=== PATIENT | male | born 1960 | race American Indian/Alaskan Native ===

== ENCOUNTER 2018-12-09 11:32 | Inpatient (IN) | payer OTHER ==
[~2018-12-09] VITALS: Ht 170.2 cm; Wt 93.3 kg
--- OUTSIDE RECORDS SUMMARY | ~2018-12-09 | XMS | Clinical Summary ---
Demographics + + + | Address | [address] | | | [place] [address] | + + + | Home Phone | | + + + | Preferred Language | Unknown | + + + | Marital Status | | + + + | Caodaism Affiliation | Unknown | + + + | Race | Unknown | + + + | Ethnic Group | Unknown | + + + Author + + + | Author | [facility] | | | and [place] | + + + | Organization | [facility] | | | and [place] | + + + | Address | Unknown | + + + | Phone | Unavailable | + + + Support + + + + + | Name | Relationship | Address | Phone | + + + + + | Preston Ra | ECON | [address] | | | [place] | | [place], | | | | | [place] [address] | | + + + + + Care Team Providers + +------+ + | Care Miller First Name | Role | Phone | + +------+ + | Agusto Sanders MD | PP | Unavailable | + +------+ + Allergies + + + + + + | Active Allergy | Reactions | Severity | Noted | Comments | | | | | Date | | + + + + + + | Clonazepam | Rash | Low | 12/20/19 | | | | | | 14 | | + + + + + + | Latex | Rash | Low | 10/01/20 | | | | | | 18 | | + + + + + + Current Medications + + +-------+---------+------+------+-------+ | Prescription | Sig. | Disp. | Refills | Star | End | Statu | | | | | | t | Date | s | | | | | | Date | | | + + +-------+---------+------+------+-------+ | EPINEPHrine | Inject 0.3 mg into | | | | | Activ | | (EPIPEN) 0.3 mg/0.3 | the muscle as | | | | | e | | mL GLNENY | needed. | | | | | | + + +-------+---------+------+------+-------+ | pramipexole | Take 1 mg by mouth. | | | | | Activ | | (MIRAPEX) 1 MG | Take 1 to 2 tablets | | | | | e | | tablet | by mouth at bedtime | | | | | | + + +-------+---------+------+------+-------+ | albuterol | Inhale 2 puffs into | | | | | Activ | | (VENTOLIN HFA) 90 | the lungs every 6 | | | | | e | | mcg/puff inhaler | hours as needed. | | | | | | + + +-------+---------+------+------+-------+ | loratadine | Take 10 mg by mouth | | | | | Activ | | (CLARITIN) 10 mg | Daily as needed for | | | | | e | | tablet | Allergies. | | | | | | + + +-------+---------+------+------+-------+ | | Inhale 2 puffs into | | | | | Activ | | mometasone-formotero | the lungs as needed. | | | | | e | | l (DULERA) 200-5 | | | | | | | | mcg/puff inhaler | | | | | | | + + +-------+---------+------+------+-------+ | Misc. Throat | Take by mouth. 1 | | | | | Activ | | Products (OASIS | capful around in | | | | | e | | MOISTURIZING | mouth 30 seconds and | | | | | | | MOUTHWASH) LIQD | spit twice a day | | | | | | | | after breakfast & | | | | | | | | before bed | | | | | | + + +-------+---------+------+------+-------+ Active Problems + + + | Problem | Noted Date | + + + | Personal history of colon cancer | 06/01/2018 | + + + | Colon cancer screening | 06/01/2018 | + + + | Periodic limb movement disorder (PLMD) | | + + + | Restless legs | | + + + | HBP (high blood pressure) | | + + + + + | Overview: Borderline | + + + +---+ | Organic insomnia | | + +---+ | CLIFFORD (obstructive sleep apnea) | | + +---+ | Mild persistent asthma | | + +---+ Immunizations + + + + | Name | Dates Previously Given | Next Due | + + + + | TDAP, (ADOL/ADULT) | 04/23/2017 | | + + + + Family History Patient is adopted + + +------+ + | Medical History | Relation | Name | Comments | + + +------+ + | Alcohol abuse | Father | | | + + +------+ + + +------+--------+ + | Relation | Name | Status | Comments | + +------+--------+ + | Father | | | | + +------+--------+ + Social History + +-------+ +--------+------+ | Tobacco Use | Types | Packs/Day | Years | Date | | | | | Used | | + +-------+ +--------+------+ | Never Smoker | | | | | + +-------+ +--------+------+ + +---+---+---+ | Smokeless Tobacco: | | | | | Never Used | | | | + +---+---+---+ + + +---------+ + | Alcohol Use | Drinks/We | oz/Week | Comments | | | ek | | | + + +---------+ + | No | | | | + + +---------+ + + + + | Sex Assigned at | Date Recorded | | | | + + + | Not on file | | + + + Last Filed Vital Signs + + + + | Vital Sign | Reading | Time Taken | + + + + | Blood Pressure | 122/84 | 06/21/2018799 PDT | + + + + | Pulse | 77 | 06/21/2018799 PDT | + + + + | Temperature | 36.1 C (97 F) | 06/21/2018726 PDT | + + + + | Respiratory Rate | 14 | 06/21/2018726 PDT | + + + + | Oxygen Saturation | 97% | 06/21/2018799 PDT | + + + + | Inhaled Oxygen | - | - | | Concentration | | | + + + + | Weight | 89.7 kg (197 lb 12 | 06/21/2018642 PDT | | | oz) | | + + + + | Height | 170.2 cm (5' 7") | 06/21/2018642 PDT | + + + + | Body Mass Index | 30.97 | 06/21/2018642 PDT | + + + + Plan of Treatment + + + + + | Health Maintenance | Due Date | Last Done | Comments | + + + + + | Hepatitis C | | | | | Screening | 9 | | | + + + + + | Vaccine: | | | | | Pneumococcal 19-64 | 8 | | | | (PPSV23 only) Medium | | | | | Risk (1 of 1 - | | | | | PPSV23) | | | | + + + + + | Vaccine: Zoster (1 | | | | | of 2) | 9 | | | + + + + + | Vaccine: Influenza | | | | | (#1) | 8 | | | + + + + + | Vaccine: | | 04/23/2017, 03/30/2012 | | | Dtap/Tdap/Td (3 - | 7 | | | | Td) | | | | + + + + + | Colorectal Cancer | | 06/21/2018 | | | Screening | 8 | | | | (Colonoscopy) | | | | + + + + + Results Not on filefrom Last 3 Months Insurance + +--------+ +------+ +---------+ | Payer | Benefi | Subscriber | Type | Phone | Address | | | t Plan | ID | | | | | | / | | | | | | | Group | | | | | + +--------+ +------+ +---------+ | [employer] [place] [employer] | [place] | [id number] | HMO | [phone] | | [place]ALTH | [place] | | | [phone] | | | | GROUP | | | | | | | HEALTH | | | | | | | CORE | | | | | | | HMO | | | | | + +--------+ +------+ +---------+ + +--------+ +--------+ + + | Guarantor Name | Accoun | Relation to | Date | Phone | Billing Address | | | t Type | Patient | of | | | | | | | | | | + +--------+ +--------+ + + | RA AGUSTIN | Person | Self [birth year] | Work: | [address] | | | al/Fam | | 1960 | +- | [place] | | | rajani | | | [phone]: | [id number] | | | | | | | | | | | | | +- | | | | | | | [phone] | | + +--------+ +--------+ + + | [id number] | Worker | Self | [birth year] | Work: | [address] | | 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 | | 1960 | +- | [place] | | | | | | [address]: | [address] | | | | | | | | | | | | | +- | | | | | | | [phone] | | + +--------+ +--------+ + + | [id number] | Worker | Self | [birth year] | Work: | [address] | | 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
--- OUTSIDE RECORDS SUMMARY | ~2018-12-09 | XMS | Clinical Summary ---
Demographics + + + | Address | [address] | | | [place] [address] | + + + | Home Phone | | + + + | Preferred Language | Unknown | + + + | Marital Status | Single | + + + | Orthodoxy Affiliation | Unknown | + + + | Race | Unknown | + + + | Ethnic Group | Other Race | + + + Author + + + | Author | [facility] | + + + | Organization | [facility] | + + + | Address | Unknown | + + + | Phone | Unavailable | + + + Care Team Providers + +------+ + | Care Dynamometer Mechanic Name | Role | Phone | + +------+ + PP | Unavailable | + +------+ + Source Comments [facility] live on [facility] and [facility] Allergies Not on File Current Medications Not on file Active Problems Not on file Social History + +-------+ +--------+------+ | Tobacco Use | Types | Packs/Day | Years | Date | | | | | Used | | + +-------+ +--------+------+ | Never Assessed | | | | | + +-------+ +--------+------+ + + + | Sex Assigned at | Date Recorded | | | | + + + | Not on file | | + + + Plan of Treatment + + + + + | Health Maintenance | Due Date | Last Done | Comments | + + + + + | Influenza (Flu) | | | | | vaccination (#1) | 8 | | | + + + + + Results Not on filefrom Last 3 Months"
[2018-12-09] MEDS ORDERED: NORCO 5-325 TA1 EACH PO (14:34)
[2018-12-09] MEDS ORDERED: HYDROCHLOROTHIA25 MG PO (15:06)
[2018-12-09] MEDS ORDERED: MIRAPEX1.5 MG PO (15:06)
[2018-12-09] MEDS ORDERED: FLOMAX0.4 MG PO (15:07)
[2018-12-09] MEDS ORDERED: AUGMENTIN 875-1 EACH PO (15:08)
[2018-12-09] MEDS ORDERED: ALLERGY RELIEF180 MG PO (15:08)
[2018-12-09] MEDS ORDERED: DOXYCYCLINE HY100 MG PO (15:09)
[2018-12-09] MEDS ORDERED: TAMIFLU75 MG PO (15:10)
--- NOTE | 2018-12-09 16:55 | NUR ---
58 year old MALE PATIENT ADMITTED TO CCU FOR ED UNDER DR. WONG WITH DX OF SEPSIS R/T PNEUMONIA. PATIENT HAS BEEN ILL FOR APPROX 5 DAYS. UPON ADMIT TO CCU PATIENT IS ALERT, ORIENTED AND COOPERATIVE. C/O SHORTNESS OF BREATH. OCC COUGH. HX ASTHMA. ADMISSION PROCESS STARTED. ALAS CATH PATENT.
--- NOTE | 2018-12-09 18:00 | NUR ---
TOOK SOUP AND JELLO FOR DINNER. LESS PAIN AT LEFT ANTERIOR CHEST WALL SINCE OXYCODONE GIVEN IN ER. RESTFUL. HOB ELEVATED.
--- NOTE | 2018-12-09 18:26 | EKG ---
[facility] [address] [facility] [place] [address] Signed Sinus tachycardia Right bundle branch block Inferior infarct , age undetermined Abnormal ECG No previous ECGs available Confirmed by ALEXANDRA WONG MD ([id number]) on 12/09/2018 6:26:24 PM Electronically Signed By: ALEXANDRA WONG MD 12/09/18 1826 PATIENT NAME: ANSLEY AGUSTIN Electrocardiogram DATE OF : 56 PHYSICIAN: ALEXANDRA WONG MD REPORT #: [id number] REPORT IS CONFIDENTIAL AND NOT TO BE RELEASED WITHOUT AUTHORIZATION
--- NOTE | 2018-12-09 19:00 | NUR ---
REPORT TO NEXT SHIFT. REMAINS IN ROOM.
--- NOTE | 2018-12-09 19:27 | NUR ---
REPORT TO NEXT SHIFT.
--- NOTE | 2018-12-09 19:58 | NUR ---
PATIENT RESTING IN BED TALKING WITH . ALERT AND ORIENTED, HR AND BP WNL. R ELEVATED BETWEEN 22 AND 26, SPO2 92% ON ROOM AIR. REPORTS PAIN IN RIBS ON LEFT SIDE, STATES "IT IS JUST NOW STARTING TO COME BACK AGAIN, IT IS GETTING HARD TO TAKE A DEEP BREATH." WILL ADMINISTER PAIN MEDICATION. DENIES FURTHER NEEDS AT THIS TIME. LUNGS ARE CLEAR THROUGHOUT, DIM IN BASES. ALAS PRESENT, QS DARK YELLOW URINE NOTED. IVF INFUSING PER ORDER, IV INTACT. CALL LIGHT WITHIN REACH, AT BEDSIDE.
--- NOTE | 2018-12-09 20:23 | NUR ---
PATIENT REPORTS 5/10 PAIN IN LEFT LOWER RIBS. 5 MG PRN PO OXYCODONE GIVEN. ALSO REPORTS FEELING COLD AND REPORTS CHILLS. TEMPERATURE OF 100.2 ORAL NOTED, PRN TYLENOL GIVEN. DENIES FURTHER NEEDS AT THIS TIME. CALL LIGHT WITHIN REACH, FAMILY AT BEDSIDE.
--- NOTE | 2018-12-09 21:29 | NUR ---
UPDATED DR. WONG REGARDING PATIENT'S CONTINUED ORAL FEVER OF 103 AND CONTINUED PAIN IN LEFT RIBS. NO NEW ORDER REGARDING FEVER, TO CONTINUE GIVING PRN TYLENOL, RECEIVED NEW ORDER FOR PRN IV MORPHINE.
--- NOTE | 2018-12-09 21:43 | NUR ---
PATIENT REPORTS 5/10 PAIN IN LEFT RIB AREA, 4 MG PRN IV MORPHINE GIVEN. DENIES FURTHER NEEDS AT THIS TIME. CALL LIGHT WITHIN REACH.
--- NOTE | 2018-12-09 23:30 | NUR ---
PATIENT RESTFUL WITH EYES CLOSED, BREATHING IS EVEN AND UNLABORED, RESPIRATORY RATE BETWEEN 25 AND 30, SPO2 94% ON RA, FLACC SCORE OF 0. CALL LIGHT WITHIN REACH.
--- NOTE | 2018-12-10 00:26 | NUR ---
PATIENT REMAINS RESTFUL, DENIES FEELING SOB AND STATES "MY BREATHING FEELS A LOT BETTER." PATIENT CONTINUES TO HAVE ORAL TEMPERATURE OF 100.8, PRN TYLENOL GIVEN, PATIENT ALSO REPORTS 4/10 PAIN IN LEFT RIB AREA. PATIENT STATES THAT HE WOULD LIKE THE PRN OXYCODONE, 10 MG INSTEAD OF IV MORPHINE, PRN OXYCODONE ADMINISTERED. DENIES FURTHER NEEDS AT THIS TIME. NO ACUTE CHANGES IN ASSESSMENT. CONTINUES TO HAVE GREATER THAN QS URINE. CALL LIGHT WITHIN REACH, AT BEDSIDE.
--- NOTE | 2018-12-10 03:02 | NUR ---
PATIENT RESTFUL WITH EYES CLOSED, BREATHING IS EVEN AND UNLABORED, RR 18, SPO2 92% ON ROOM AIR. FLACC SCORE OF 0. CALL LIGHT WITHIN REACH.
--- NOTE | 2018-12-10 04:25 | NUR ---
PATIENT REPORTS BLOOD STREAKED SPUTUM AFTER COUGHING, ALSO REPORTS MILD SHORTNESS OF BREATH, RR 24, SPO2 93% ON ROOM AIR. EXPIRATORY WHEEZES NOTED WITH COARSE BERATH SOUNDS LEFT MID LOBE OF LUNG. PATIENT STATES "OVERALL MY BREATHING ACTUALLY FEELS A LOT BETTER. THE PAIN IS MANEGABLE NOW." CALLED RT FOR DUONEB AND ASSESSMENT.
--- NOTE | 2018-12-10 05:05 | NUR ---
PATIENT NOW RESTFUL SITTING UP IN BED WATCHING TV, REMAINS ON ROOM AIR, SPO2 93%, RR BETWEEN 28 AND 32 BUT STATES "MY BREATHING FEELS LOADS BETTER, I AM JUST GETTING CHILLS AGAIN." TEMPERATURE OF 100.9 NOTED, PRN TYLENOL GIVEN. LUNGS ARE CLEAR THROUGHOUT, DIM IN LLL. DENIES FURTHER NEEDS AT THIS TIME. CALL LIGHT WITHIN REACH.
--- NOTE | 2018-12-10 05:14 | NUR ---
REPORTS 4/10 PAIN IN LEFT RIB AREA, STATES "THE PAIN IS MUCH MORE MAGEABLE AND I CAN TAKE DEEPER BREATHES, BUT THE PAIN IS STARTING TO COME BACK." 5 MG PO PRN OXYCODONE GIVEN. DENIES FURTHER NEEDS. CALL LIGHT WITHIN REACH.
--- NOTE | 2018-12-10 08:00 | NUR ---
PT RESTING IN BED WATCHING TV WITH HIS AT THE BEDSIDE. HE DENIES ANY NEEDS BUT IS PLEASANT, CALM AND COOPERATIVE. CALL LIGHT WITHIN REACH. WILL CONTINUE TO MONITOR AND RETURN WITH MEDICATIONS AND ASSESSMENT WITHIN THE HOUR.
--- NOTE | 2018-12-10 08:40 | NUR ---
PT SITTING UP IN BED AND JUST COMPLETED 100% OF HIS BREAKFAST. ASSESSMENT COMPLETED. PT IS A/O X4 WITH C/O 5 OUT OF 10 LEFT RIB PAIN FROM COUGHING- PRN TYLENOL GIVEN. HE DENIES ANY N/V OR SOB/BREATHING ISSUES. HIS LUNGS ARE CLEAR THROUGHOUT ALL LOBES AT THIS TIME. ROOM AIR. HIS ABDOMEN IS SLIGHTLY FIRM AND MODERATELY DISTENDED, MORE THAN HIS USUAL PER PT. ACTIVE BOWEL SOUNDS. LAST BM WAS YESTERDAY. PT STRONG AND STEADY. ALAS IS IN PLACE WITH CLEAR, LIGHT YELLOW URINE- ADEQUATE UOP. RASH AND SOME SCABBING ON BILATERAL SHINS WHICH PT STATES IS FROM HIS PSORIASIS. EDUCATION COMPLETED ON MEDICATIONS AND PLAN OF CARE WITH PT AND HIS . HIS VS AND CONDITION ARE OVERALL STABLE. HE DENIES ANY FURTHER NEEDS AT THIS TIME. CALL LIGHT WITHIN REACH. FALL PRECAUTIONS IN PLACE. WILL CONTINUE TO MONITOR.
--- NOTE | 2018-12-10 09:05 | NUR ---
DR. WONG AT THE BEDSIDE
--- NOTE | 2018-12-10 09:50 | NUR ---
ALAS CATHETER REMOVED AT THIS TIME WITHOUT ANY COMPLICATIONS- PT TOLERATED WELL. CONTINUOUS LR RATE ALSO CHANGED TO 75 ML/HR FROM 150 ML/HR. PT REMAINS VERY PLEASANT, CALM AND COOPERATIVE. HE STATES HIS PAIN HAS IMPROVED SLIGHTLY, AND REFUSING ANY PRN OXYCODONE AT THIS TIME. ONE TIME DOSE OF KCHLOR GIVEN. PT DENIES ANY FURTHER NEEDS AT THIS TIME. REMAINS AT BEDSIDE. CALL LIGHT WITHIN REACH. WILL CONTINUE TO MONITOR.
--- NOTE | 2018-12-10 11:03 | NUR ---
PRN OXY GIVEN PER PT'S REQUEST TO "STAY AHEAD OF BAD PAIN." UNASYN HUNG WITH CONTINUOUS FLUIDS. PT'S AT BEDSIDE AND HIS DAUGHTER HAS JUST ARRIVED TO VISIT WELL. PT STATES HE FEELS NO URGE TO URINATE YET POST ALAS CATH REMOVAL. CALL LIGHT WITHIN REACH. WILL CONTINUE TO MONITOR.
--- NOTE | 2018-12-10 12:40 | NUR ---
PT SITTING UP WITH FAMILY EATING HIS LUNCH AT THIS TIME. ASSESSMENT COMPLETED. PRN TYLENOL GIVEN FOR A TEMP SPIKE OF 101.5 ORALLY. PT STATED HE FELT HOT LIKE HE HAD A FEVER WELL. EDUCATION GIVEN ON INFECTION PROCESS. PT STILL STATES HE DOESN' FEEL THE URGE TO URINATE YET- WILL CONTINUE TO MONITOR AND ASSESS/FOLLOW UP. NO CHANGES IN ASSESSMENT- DIM LUNG SOUNDS IN BILATERAL BASES. PT DENIES ANY NEEDS AND STATES THAT HE'S COMFORTABLE AT HIS PAIN GOAL OF A 2 OUT OF 10. HE STATES THIS PAIN WORSENS WHEN HE COUGHS BUT IT SUBSIDES WITH REST. CALL LIGHT WITHIN REACH. WILL CONTINUE TO MONITOR.
--- NOTE | 2018-12-10 13:30 | NUR ---
PT AMBULATED WITH STAND BY ASSISTANCE UP TO BATHROOM. PT STRONG AND STEADY ON HIS FEET. FULL BATH COMPLETED BY PT INDEPENDENTLY WHILE UP IN BATHROOM. FULL LINEN CHANGE COMPLETED. PT STILL REMAINS UP IN BATHROOM AT THIS TIME TO ATTEMPT URINATION. PT AWARE TO CALL WITH PULL STRING WHEN FINISHED THEN WILL BE SITTING UP IN RECLINER ENCOURAGED.
--- NOTE | 2018-12-10 14:00 | NUR ---
PT CURRENTLY SITTING UP IN RECLINER AFTER FULL BATH IN BATHROOM. DAUGHTER AND REMAIN AT HIS SIDE IN THE ROOM VISITING WITH PT. PT DENIES ANY PAIN BUT STATES HE FEELS "A LITTLE WORN OUT" AFTER SPENDING A FEW MINUTES UP IN THE BATHROOM ON HIS FEET. PT ALSO HAS URINATED 225 CC OF NELDA URINE INTO URINAL- NO LONGER DUE TO VOID. CALL LIGHT WITHIN REACH. FRESH ICE WATER PROVIDED. WILL CONTINUE TO MONITOR.
[2018-12-10] MEDS ORDERED: DULERA 100 MCG/13 GM INH (14:33)
[2018-12-10] MEDS ORDERED: PROAIR HFA8.5 GM INH (14:33)
--- NOTE | 2018-12-10 15:31 | NUR ---
PT REMAINS UP IN CHAIR WATCHING TV WITH FAMILY AT HIS SIDE VISITING. HE DENIES ANY PAIN OR SOB, STATES HE'S COMFORTABLE WITH NO QUESTIONS OR CONCERNS. WORKING ON HIS ACAPELLA AND IS INDEPENDENTLY. CALL LIGHT WITHIN REACH. WILL CONTINUE TO MONITOR.
--- NOTE | 2018-12-10 16:31 | NUR ---
PT HAS AMBULATED FROM RECLINER TO BATHROOM, AND BACK TO RECLINER, TO HAVE A BM. PT BACK IN RECLINER WITH FAMILY AT BEDSIDE. ASSESSMENT COMPLETED. PT DENIES PAIN BUT IS TACHYPNEIC AFTER EXERTION/AMBULATION. REMAINS ROOM AIR WITH ADEQUATE OXYGENATION. PT'S TEMP HAS INCREASED TO 102.2 AND PRN TYLENOL GIVEN. HE DENIES ANY NEEDS AT THIS TIME. LEVAQUIN INITIATED. CALL LIGHT WITHIN REACH. WILL CONTINUE TO MONITOR AND FOLLOW UP WITH INCREASED TEMP.
--- NOTE | 2018-12-10 17:40 | NUR ---
PT WATCHING TV WHILE WORKING ON HIS DINNER. DENIES ANY PAIN AT THIS TIME. DENIES ANY FURTHER NEEDS. CALL LIGHT WITHIN REACH. WILL CONTINUE TO MONITOR.
--- NOTE | 2018-12-10 18:28 | NUR ---
PT STILL SLOWLY WORKING ON HIS DINNER. EDUCATION REPEATED ON URINATING IN THE URINAL SO WE CAN SEND TO LAB. HE STATES HIS UNDERSTANDING OF THIS. AND DAUGHTER REMAIN AT THE BEDSIDE VISITING WITH PT. TEMP RECHECKED AND IT HAS DECREASED TO 99.8. CALL LIGHT WITHIN REACH. WILL CONTINUE TO MONITOR.
--- NOTE | 2018-12-10 18:45 | NUR ---
PRN OXYCODONE GIVEN AFTER PT CALLED THIS RN INTO ROOM AFTER HEARING A "POP" IN HIS LEFT RIB AFTER COUGHING. HE STATES THAT IT IS SORE NOW HE SITS IN HIS BED. HIS CONDITION AND HIS VS REMAIN STABLE AND ASYMPTOMATIC. TOLD PT TO CONTINUE TO MONITOR IT AND LET RN KNOW IF WORSENS. CALL LIGHT WITHIN REACH. WILL CONTINUE TO MONITOR.
--- NOTE | 2018-12-10 19:20 | NUR ---
URINE SPECIMEN SENT TO LAB AT THIS TIME PER ORDERS. PT BACK IN BED AFTER BEING UP TO RESTROOM.
--- NOTE | 2018-12-10 19:48 | NUR ---
PATIENT REPORTS 7/10 PAIN IN LEFT RIB AREA AND STATES "IT IS REALLY BAD WHEN I COUGH." 4 MG PRN IV MORPHINE GIVEN. PATIENT STATES "MY BREATHING FEELS PRETTY GOOD RIGHT NOW, I AM FEELING BETTER OVERALL." DENIES FURTHER NEEDS. ALERT AND ORIENTED X4, RIGHT LUNG CLARK ARE CLEAR, CRACKLES HEARD IN LEFT LOWER LOBE, EXP WHEEZE AT TIMES IN UPPER LEFT LUNG FIELD. HR AND AND BP WNL, PERIPHERAL PULSES WELL FELT. O2 SATURATION 95% ON ROOM AIR, RR IN 20s. IV TO LEFT FOREARM INTACT, IVF INFUSING PER ORDER. CALL LIGHT WITHIN REACH, AT BEDSIDE.
--- NOTE | 2018-12-10 21:30 | NUR ---
PATIENT CONTINUES TO REPORT UNCONTROLLED LEFT SIDED PLEURITIC CHEST PAIN, 8MG IV PRN MORPHINE GIVEN. RR 26, SPO2 95%, BREATHING UNLABORED. DENIES FURTHER NEEDS. CONTINUOUS PULSE OX ON, CALL LIGHT WITHIN REACH.
--- NOTE | 2018-12-10 22:10 | NUR ---
NOTIFIED DR. WONG THAT PATIENT HAS HADI NCREASED NEED FOR PAIN MEDICATION WITH PLEURITIC CHEST PAIN ON LEFT SIDE AFTER PATIENT REPORTS "POPPING SENSATION" AFTER COUGHING. RECEIVED ORDER TO GIVEN PATIENT 5 MG PO OXYCODONE NOW AND IF PATIENT'S PAIN DOES NOT IMPROVE, MAY START ON IV KETORALAC 30 MG Q8H PRN FOR PAIN.
--- NOTE | 2018-12-10 23:15 | NUR ---
PATIENT RESTFUL WITH EYES CLOSED, BREATHING IS EVEN AND UNLABORED, SPO2 89% ON ROOM AIR, PLACED ON 1L O2 VIA NC, SPO2 NOW 94%. FLACC SCORE OF 0. CALL LIGHT WI
--- NOTE | 2018-12-11 00:04 | NUR ---
PATIENT UP TO BATHROOM SBA, ABLE TO HAVE BM AND VOIDED 500 CC NELDA URINE. NOW RESTING IN BED AGAIN, BREATHING MILDLY LABORED, RR 24 TO 26, SPO2 94% ON ROOM AIR WITH AMBULATION. PATIENT STATES "MY BREATHING FEELS REALLY GOOD RIGHT NOW." AT REST, REPORTS PAIN 5/10 PLEURITIC CHEST PAIN ON LEFT SIDE, 30 MG IV PRN KETOROLAC GIVEN. PATIENT DENIES FURTHER NEEDS AT THIS TIME. PLACED ON 1L O2 VIA NC FOR SLEEP, SPO2 DOWN BETWEEN 89 AND 92% WITH SLEEP ON ROOM AIR. CALL LIGHT WITHIN REACH, IVF INFUSING PER ORDER.
--- NOTE | 2018-12-11 02:31 | NUR ---
PATIENT RESTFUL WITH EYES CLOSED, BREATHING IS EVEN AND UNLABORED, RR 20, SPO2 94% ON 1L O2 VIA NC. PATIENT STATES PAIN IS WELL CONTROLLED AND HAS BEEN ABLE TO SLEEP. DENIES NEEDS AT THIS TIME. CALL LIGHT WITHIN REACH.
--- NOTE | 2018-12-11 03:48 | NUR ---
PATIENT RESTFUL WITH EYES CLOSED, BREATHING IS UNLABORED, SPO2 98% ON 1L, TITRATED TO ROOM AIR. DENIES SOB, DENIES NEED FOR PAIN MEDICATION AND STATES "MY PAIN IS WELL CONTROLLED RIGHT NOW." NO ACUTE CHANGES IN ASSESSMENT. DENIES NEEDS AT THIS TIME. CALL LIGHT WITHIN REACH.
--- NOTE | 2018-12-11 06:05 | NUR ---
PT UP TO BATHROOM, VOIDED 400 MLS OF DARK YELLOW URINE AND HAD A SMALL SOFT/LOOSE BM, PT BACK TO BED, C/O 03/29 PAIN RELATED TO LEFT PLEURITIC CHEST PAIN, PT STATES PAIN IS EXACERBATED WITH MOVEMENT AND COUGHING, PT GIVEN PRN PAIN MED PER EMAR. EDUCATION PROVIDED REGARDING PAIN MANAGEMENT. QUESTIONS ANSWERED, ICE CHIPS/ICE WATER PROVIDED, NO FURTHER REQUESTS AT THIS TIME, CALL LIGHT WITHIN REACH.
--- NOTE | 2018-12-11 08:15 | NUR ---
PT ENCOURAGED TO GET UP TO RECLINER FOR BREAKFAST- STRONG AND STEADY ON HIS FEET AND NOW UP IN RECLINER EATING BREAKFAST. PT IS A/O X4. DENIES N/V AND DENIES SOB BUT IS TACHYPNEIC AFTER AMBULATION. ROOM AIR. LUNGS ARE CLEAR EXCEPT CRACKLES HEARD IN THE LEFT LOWER BASE. PT HAS A MOIST COUGH- C/O PAIN OF A 7 OUT OF 10 AT THIS TIME IN THE LEFT RIB CAGE BUT WORSENS WITH HIS COUGH. TORADOL GIVEN. LR RUNNING INTO LEFT ARM PIV WITHOUT ISSUE. SITE WNL. CONTINUOUS TELE- SINUS RHYTHYM. PT IS VERY PLEASANT, CALM AND COOPERATIVE. HIS IS AT THE BEDSIDE. LINENS CHANGED WHIL PT OUT OF BED AND FRESH ICE WATER PROVIDED. PT DENIES ANY NEEDS AT THIS TIME. CALL LIGHT WITHIN REACH. WILL CONTINUE TO MONITOR AND FOLLOW UP ON PAIN.
--- NOTE | 2018-12-11 09:04 | NUR ---
PT REMAINS UP IN HIS RECLINER VISITING WITH HIS AND TWO FAMILY FRIENDS WHO HAVE JUST ARRIVED TO VISIT. CALL LIGHT WITHIN REACH. WILL CONTINUE TO MONITOR.
--- NOTE | 2018-12-11 09:25 | NUR ---
REASSESSMENT OF PAIN COMPLETED- PT STATES HIS PAIN HAS DECREASED AND IS NOW AT A 4 OUT OF 10 AFTER GETTING PRN TORADOL. UP IN RECLINER WATCHING TV WITH HIS , DENIES ANY NEEDS AT THIS TIME. CALL LIGHT WITHIN REACH. WILL CONTINUE TO MONITOR.
--- NOTE | 2018-12-11 10:22 | NUR ---
PT BACK IN BED- USED RESTROOM (HAD BM AND URINATED 450 CC) AND CLEANED UP INDEPENDENTLY AT THE SINK. PT NOW RESTING IN BED WITH FRESH ICE PACK ON HIS LEFT RIBS. HIS REMAINS AT BEDSIDE. CALL LIGHT WITHIN REACH. WILL CONTINUE TO MONITOR.
--- NOTE | 2018-12-11 11:14 | NUR ---
ENTERED ROOM TO FIND PT NAPPING COMFORTABLY. PT AWOKE UPON MY ARRIVAL WELL 2 OTHER FAMILY FRIENDS WHO WERE JUST WALKING IN THE ROOM. UNASYN AND KCHLOR GIVEN. PT STATES HE'S COMFORTABLE AND CONTINUES WITH HIS ICE PACK ON HIS LEFT RIBCAGE. HE DENIES ANY NEEDS AT THIS TIME. CALL LIGHT IS WITHIN REACH. WILL CONTINUE TO MONITOR.
--- NOTE | 2018-12-11 12:01 | NUR ---
ASSESSMENT COMPLETED AGAIN AT THIS TIME. NO CHANGE IN ASSESSMENT. PT'S TEMP HAS IMPROVED AND IS 98.6 AT THIS TIME. PT AND HIS HAD SOME QUESTIONS IN REGARDS TO INFECTION AND ABX THERAPY- EDUCATION COMPLETED. 10 MG OXYCODONE GIVEN FOR LEFT RIB CAGE PAIN OF A 6 OUT OF 10. PT'S COUGH PERSISTS AND IS MOIST WELL WEAK- BUT PT SAYS HE'S ABLE TO COUGH BETTER AND WITH MORE STRENGTH AFTER PAIN MEDICATION. PT DENIES ANY FURTHER NEEDS AT THIS TIME. LUNCH ORDER HAS JUST BEEN PLACED. CALL LIGHT WITHIN REACH. WILL CONTINUE TO MONITOR AND FOLLOW UP ON PAIN CONTROL.
--- NOTE | 2018-12-11 13:00 | NUR ---
PT SITTING UP EATING LUNCH WITHOUT ANY CONCERNS, REQUESTS OR NEEDS TO BE MET. CALL LIGHT WITHIN REACH. WILL CONTINUE TO MONITOR.
--- NOTE | 2018-12-11 14:05 | NUR ---
PT ASLEEP IN BED AT THIS TIME AND APPEARS COMFORTABLE WITH NO SIGNS OF DISCOMFORT. HIS VS REMAIN STABLE. AT BEDSIDE WHO DENIES ANY NEEDS AT THIS TIME. CALL LIGHT WITHIN REACH. WILL CONTINUE TO MONITOR.
--- NOTE | 2018-12-11 15:08 | NUR ---
PT VISITING WITH FAMILY MEMBERS VISITING HIM AT THE BEDSIDE. HE STATES HE'S COMFORTABLE WITH NO REQUESTS AT THIS TIME. CALL LIGHT WITHIN REACH. WILL CONTINUE TO MONITOR.
--- NOTE | 2018-12-11 16:00 | NUR ---
ASSESSMENT COMPLETED AT THIS TIME. PT CURRENTLY SITTING WITH NUMEROUS FAMILY MEMBERS VISITING HIM AT THE BEDSIDE. PT REMAINS VERY PLEASANT, CALM AND COOPERATIVE. FEVER OF 101.5. HE STATES HIS PAIN IS AN 8 OUT OF 10- PRN OXYCODONE GIVEN. DENIES ANY OTHER SYMPTOMS. NO CHANGES IN HEAD TO TOE ASSESSMENT. HE REMAINS ROOM AIR. DINNER ORDERED FOR HIM. DENIES ANY FURTHER NEEDS. CALL LIGHT WITHIN REACH. WILL CONTINUE TO MONITOR AND FOLLOW UP.
--- NOTE | 2018-12-11 16:08 | NUR ---
NOTIFIED DR. WONG AT THIS TIME OF PT'S TEMP OF 101.5 (38.5)- VERBAL ORDER GIVEN FOR TWO SETS OF BLOOD CULTURES TO BE DRAWN.
--- NOTE | 2018-12-11 17:08 | NUR ---
LAB HAS BEEN UP TO DRAW BLOOD CULTURES. PT CURRENTLY VISITING WITH FAMILY. HE STATES HIS PAIN HAS IMPROVED AND IS NOW AT A 4 OUT OF 10. PT DENIES ANY NEEDS. HIS DINNER HAS JUST ARRIVED. CALL LIGHT WITHIN REACH. WILL CONTINUE TO MONITOR.
--- NOTE | 2018-12-11 18:14 | NUR ---
PT HAS AMBULATED TO AND FROM RESTROOM AND IS CURRENTLY SITTING ON EDGE OF BED DANGLING. PT REMAINS SOB WITH EXERTION BUT AFTER A FEW MINUTES OF REST THIS SUBSIDES. O2 SAT AFTER WALKING ON ROOM AIR IS 90-91%. NOTED HAT PT IS TACHYCARDIC IN LOW 100'S. RECHECK OF HIS TEMP SHOWED INCREASE AT 102.7
--- NOTE | 2018-12-11 18:20 | NUR ---
UPDATED DR. WONG OF PT'S TEMP OF 102.7, THAT 500 MG PRN TYLENOL HAS BEEN GIVEN AND OF PT'S HR IN LOW 100'S. DR. WONG RECOMMENDS GIVING PT HIS PRN TORADOL FOR FEVER CONTROL.
--- NOTE | 2018-12-11 20:19 | NUR ---
PATIENT SITTING WITH HOB ELEVATED, TALKING WITH . BREATHING IS UNLABORED, DENIES FEELING SOB. ALSO STTATES THAT PAIN IS WELL CONTROLLED AT THIS TIME, RATES 4/10 PLEURITIC CHEST PAIN ON LEFT SIDE, DENIES NEED FOR PAIN MEDICATION. ALERT AND ORIENTED X4, HR WNL, SINUS RHYTHM. REMAINS ON ROOM AIR, SPO2 94%, LLL OF LUNG HAS CRACKLES, ALL OTHER LUNG CLARK CLEAR. NON-PITTING EDEMA NOTED IN EXTREMITIES, PERIPHERAL PULSES WELL FELT THOUGHOUT. IV REMAINS INTACT, IVF INFUSING PER ORDER. DENIES NEEDS AT THIS TIME. CALL LIGHT WITHIN REACH.
--- NOTE | 2018-12-11 20:59 | NUR ---
PATIENT UP TO BATHROOM, SBA, GAIT IS STEADY, PATIENT DENIES FEELING SOB WITH ACTIVITY, RR BETWEEN 18 AND 22 WITH AMBULATION. NOW RESTING IN BED AGAIN, BREATHING REMAINS UNLABORED. DENIES FURTHER NEEDS AT THIS TIME. CALL LIGHT WITHIN REACH.
--- NOTE | 2018-12-11 22:42 | NUR ---
DR. WONG CALLED UNIT TO CHECK IN AND UPDATE RN THAT IV FLUIDS HAVE BEEN D/C'D.
--- NOTE | 2018-12-11 22:45 | NUR ---
UPDATED DR. WONG ABOUT PATIENT'S MULTIPLE LOOSE STOOLS, STOOL CULTURES ORDERED, SAMPLE SENT TO LAB.
--- NOTE | 2018-12-11 23:10 | NUR ---
PATIENT REMAINS RESTFUL, RR BEWEEN 22 AND 26, SPO2 97% ON ROOM AIR. DENIES NEED FOR PAIN MEDICATION AT THIS TIME, NO OTHER NEEDS. ASSESSMENT DONE, NO ACUTE CHANGES FROM PREVIOUS ASSESSMENT. CALL LIGHT WITHIN REACH.
--- NOTE | 2018-12-12 01:45 | NUR ---
PATIENT RESTFUL WITH EYES CLOSED, BREATHING IS EVEN AND UNLABORED, RR 22, SPO2 95% ON ROOM AIR, FLACC SCORE OF 0. CALL LIGHT WITHIN REACH.
--- NOTE | 2018-12-12 02:07 | NUR ---
UP TO BR TO VOID THEN BACK TO BED, STEADY ON FEET. DENIES PAIN OR NEEDS.
--- NOTE | 2018-12-12 03:12 | NUR ---
PATIENT REPORTS FEELING SOB, RR INCREASED TO 28, SPO2 REMAINS 95% ON ROOM AIR. EXPIRATORY AND INSPIRATORY WHEEZE NOTED. PATIENT STATES THAT WHEEZE WAS AFTER "COUGHING FIT." RT TO BEDSIDE FOR DUONEB BREATHING TREATMENT. RR REMAINS BETWWEN 26 AND 30, SPO2 93% ON ROOM AIR, PATIENT STATES "MY BREATHING FEELS BETTER NOW," DENIES DISTRESS, STATES HAS MILD SOB STILL. NOW RESTING WITH EYES CLOSED. DENIES FEELING PAIN. CALL LIGHT WITHIN REACH.
--- NOTE | 2018-12-12 04:46 | NUR ---
PATIENT ASSISTED TO BATHROOM, PATIENT REMAINS STEADY ON FEET, DENIES FEELING SOB WITH ACTIVITY. NOW RESTING IN BED AGAIN. RR BETWEEN 28 AND 32, SPO2 95% ON ROOM AIR. ORAL TEMPERATURE OF 101.4 NOTED, PRN TYLENOL GIVEN AND ORDERS FOR MORE BLOOD CULTURES PUT IN PER MD WRITTEN ORDER. PATIENT DENIES PAIN AND DENIES FEELING SOB. NO FURTHER NEEDS AT THIS TIME. CALL LIGHT WITHIN REACH.
--- NOTE | 2018-12-12 06:07 | NUR ---
PATIENT CONTINUES TO HAVE RR BETWEEN 28 AND 32, SPO2 95% ON ROOM AIR, HEART RATE BETWEEN 95 AND 105, PATIENT REPORTS 4/10 PLEURITIC LEFT SIDED CHEST PAIN AFTER COUGHING, ALSO CONTINUES TO HAVE ORAL TEMPERATURE OF 100.2 DESPITE TYLENOL ADMINISTRATION. 30 MG IV PRN KETOROLAC GIVEN. PATIENT DENIES FURTHER NEEDS AT THIS TIME. CALL LIGHT WITHIN REACH.
--- NOTE | 2018-12-12 07:19 | NUR ---
PATIENT RESTFUL SITTING UP IN CHAIR, RR 22, HEART RATE 88, DENIES PAIN AT THIS TIME. ORAL TEMP OF 98.9 AFTER KETOROLAC ADMINISTRATION. DENIES NEEDS AT THIS TIME AND STATES "I AM FEELING MUCH BETTER." CALL LIGHT WITHIN REACH.
--- NOTE | 2018-12-12 07:30 | NUR ---
PT UP IN THE CHAIR AT THIS TIME. PLEASANT, CALM AND COOPERATIVE. DENIES ANY PAIN. BREAKFAST ORDER PLACED FOR HIM. HE DENIES ANY NEEDS. CALL LIGHT WITHIN REACH. WILL RETURN SOON FOR ASSESSMENT AND CONTINUE TO MONITOR.
--- NOTE | 2018-12-12 08:30 | NUR ---
PT ASSESSMENT COMPLETED AT THIS TIME. PT REMAINS UP IN CHAIR AFTER FINISHING HIS BREAKFAST VISITING WITH HIS DAUGHTER AND GRANDDAUGHTER AT HIS SIDE. PT REMAINS PLEASANT, CALM AND COOPERATIVE. A/O X4 WITH 4 OUT OF 10 LEFT RIB CAGE PAIN, WHICH IS TOLERABLE FOR HIM AT THIS TIME. DENIES N/V OR SOB. ROOM AIR. CLEAR LUNG SOUNGS EXCEPT FOR CRACKLES IN LLL. SOMEWHAT SOB AFTER EXERTION BUT THIS DIMINISHED AFTER A SHORT MOMENT OF REST. PT IS STRONG, STEADY AND INDEPENDENTLY ABLE TO AMBULATE AROUND HIS ROOM. SR/ST ON CONTINUOUS TELE; OCCASSIONALY TACHYPNEIC. GENERALIZED SCANT EDEMA. FREQUENT URINE OUTPUT WNL. RECENT DIARRHEA. L ARM PIV SL AND WNL. EDUCATION COMPLETED WITH PT AND HIS DAUGHTER. HE DENIES ANY NEEDS TO BE MET AT THIS TIME. CALL LIGHT WITHIN REACH. WILL CONTINUE TO MONITOR.
--- NOTE | 2018-12-12 09:30 | NUR ---
DR. WONG AT THE BEDSIDE. PT JUST FINISHED AMBULATING AROUND THE ROOM. PT DENIES ANY PAIN. UPDATED ON PLAN OF CARE BY DR. WONG. CALL LIGHT WITHIN REACH. WILL CONTINUE TO MONITOR.
--- NOTE | 2018-12-12 10:25 | NUR ---
PT HAS JUST COMPLETED WALKING AROUND THE HALLWAYS WITH HIS DAUGHTER AT HIS SIDE- AT LEAST 5-10 MINUTES SPENT UP AMBULATING THE HALLWAY. STRONG, STEADY, INDEPENDENT AMBULATION. SOME SOB WITH EXERTION BUT NOTHING THE PT WASN'T ABLE TO TOLERATE. LINENS CHANGED. FRESH WATER PROVIDED. PT BACK IN RECLINER WATCHING TV. DENIES PAIN. CALL LIGHT WITHIN REACH. WILL CONTINUE TO MONITOR.
--- NOTE | 2018-12-12 11:20 | NUR ---
PT RESTING IN BED WATCHING TV WITH HIS DAUGHTER STILL AT THE BEDSIDE VISITING HIM. HE DENIES PAIN AT THIS TIME BUT DID STATE THAT HE FEELS THOUGH HIS RESTLESS LEG SYMPTOMS ARE WORSENING AND IS REQUESTING MORE MIRAPEX TO HELP WITH THIS. WILL SPEAK TO DR. WONG. DENIES ANY FURTHER NEEDS AT THIS TIME. CALL LIGHT WITHIN REACH. WILL CONTINUE TO MONITOR.
--- NOTE | 2018-12-12 11:36 | NUR ---
NOTIFIED DR. WONG AT THIS TIME OF PT'S C/O INCREASED RESTLESS LEG SYMPTOMS.
--- NOTE | 2018-12-12 12:09 | NUR ---
PT WORKING ON HIS LUNCH AT THIS TIME. PT AMBULATED THE HALLWAY FOR A SECOND TIME TODAY FOR NUMEROUS MINUTES WITH A FRIEND OF HIS WHO WAS VISITING. VS AND CONDITION REMAIN STABLE. PT BACK TO ROOM SITTING UP IN RECLINER. ASSESSMENT COMPLETED AT THIS TIME. NO CHANGES. OCCASIONAL COUGH PERSISTS BUT IT IS DRY AND HE STATES HE ISN'T COUGHING ANY SPUTUM UP. HE DENIES ANY PAIN, JUST HIS RESTLESS LEG SYMPTOMS. CONTINUES TO HAVE VERY GOOD PO INTAKE OF FLUIDS. DENIES ANY FURTHER NEEDS AT THIS TIME. CALL LIGHT WITHIN REACH. WILL CONTINUE TO MONITOR.
--- NOTE | 2018-12-12 13:10 | NUR ---
PT RESTING/NAPPING WITH HIS EYES CLOSED; NO SIGNS OF PAIN OR DISCOMFORT. HIS HAS ARRIVED AND IS SITTING AT THE BEDISDE- SHE DENIES ANY NEEDS TO BE MET AT THIS TIME. CALL LIGHT WITHIN REACH. WILL CONTINUE TO MONITOR.
--- NOTE | 2018-12-12 14:05 | NUR ---
PT RESTING WITHOUT ANY C/O PAIN AND DENIES ANY NEEDS TO BE MET. AT [facility]. CALL LIGHT WITHIN REACH. WILL CONTINUE TO MONITOR.
--- NOTE | 2018-12-12 15:30 | NUR ---
PT HAS AMBULATED HALLWAYS AGAIN. PT STATES HE'S HAVING SOME ABDOMINAL SORENESS FROM HIS COUGHING. COUGH DROPS GIVEN FOR SORE THROAT. PT TOOK INDEPENDENT BATH. HE DENIES ANY FURTHER NEEDS AT THIS TIME. CALL LIGHT WITHIN REACH. WILL CONTINUE TO MONITOR.
--- NOTE | 2018-12-12 16:45 | NUR ---
ASSESSMENT COMPLETED AGAIN AT THIS TIME. NO CHANGE TO PREVIOUS ASSESSMENT. DENIES PAIN EXCEPT FOR SOME SORENESS IN HIS THROAT AND ABDOMINAL SORENESS FROM HIS DRY COUGH. SITTING UP IN RECLINER WITH HIS AT HIS SIDE. PT'S TEMP (AXILLARY SINCE PT JUST ATE ICE) IS 101 DEGREES. WILL PASS THIS ONTO DR. WONG. PIV IN LEFT ARM WNL; FLUSHED AND ABX INITIATED AT THIS TIME. PT HAS NO FURTHER NEEDS TO BE MET. CALL LIGHT WITHIN REACH. WILL CONTINUE TO MONITOR.
--- NOTE | 2018-12-12 17:13 | NUR ---
STATES HE PICKED WHATEVER THIS IS IN [place] AND IS READY TO BE RID OF IT AND TO START FEELING BETTER. WANTS TO BE ABLE TO RETURN HOME SOON.
--- NOTE | 2018-12-12 17:27 | NUR ---
PT C/O SOME SOB AFTER AMBULATING BACK TO HIS BED FROM RESTROOM. ALSO STATES THAT HE FEELS OVERALL A BIT MORE ANXIOUS AND REQUESTS SOMETHING TO HELP HIM WITH SLEEP TONIGHT. WILL PASS THIS ON. DENIES ANY FURTHER NEEDS. CALL LIGHT WITHIN REACH. WILL CONTINUE TO MONITOR.
--- NOTE | 2018-12-12 18:18 | NUR ---
PT HAS JUST RETURNED TO HIS BED FROM THE RESTROOM. HE'S SITTING UP IN BED EATING HIS DINNER. DENIES ANY NEEDS AT THIS TIME. NUMEROUS FAMILY MEMBERS AT BEDSIDE. CALL LIGHT WITHIN REACH. WILL CONTINUE TO MONITOR.
--- NOTE | 2018-12-12 18:39 | NUR ---
PT C/O ANXIETY. STATES HE'S HAVING BACK PAIN WELL- 10 MG PRN OXYCODONE GIVEN. EMOTIONAL SUPPORT GIVEN WELL THERAPEUTIC COMMUNICATION. WILL FOLLOW UP WITH DR. WONG. CALL LIGHT WITHIN REACH. WILL CONTINUE TO MONITOR
--- NOTE | 2018-12-12 18:47 | NUR ---
UPDATED DR. WONG AT THIS TIME IN REGARDS TO PT'S TEMP OF 101 EARLIER AND THAT IT IS NOW 100.7 (BOTH AXILLARY- PT EATING ICE). ALSO INFORMED HIM OF PT'S INCREASED ANXIETY AND REQUEST FOR SOMETHING TO HELP WITH THIS. VERBAL ORDER READ BACK TO HIM FOR MEDICATION Q6HR PRN- SEE ORDERS.
--- NOTE | 2018-12-12 20:10 | NUR ---
PT DOZING, AWAKENS EASILY, GIVEN CEPOCOL LOZENGE FOR DRY, SORE THROAT. PT AND SON INFORMED THAT IF THEY WISHED TO BRING IN OTC COUGH DROPS FOR COMFORT THEY COULD. PT STATES BACK PAIN IS BETTER AND IS LESS ANXIOUS. LAB IN TO DRAW BLOOD.
--- NOTE | 2018-12-12 22:15 | NUR ---
PT DOZING OFF AND ON. SON IN ROOM. ABX CHANGED SECOND IV SITE STARTED R ARM PT DEMETRIUS WELL.
--- NOTE | 2018-12-12 22:57 | NUR ---
PT AMB TO BR WITH HELP OF SON, NO CHANGE.
--- NOTE | 2018-12-12 23:32 | NUR ---
REQUESTING CEPOCOL LOZENGE FOR DRY AND SORE THROAT. ALSO C/O LOW BACK PAIN, GIVEN 5MG OXYCODONE PO. RATES PAIN 6/10. TAKING WATER WELL. ABX INFUSING WITHOUT PROBLEM
--- NOTE | 2018-12-13 00:29 | NUR ---
AMB TO BR TO VOID AND REPORTED HAVING A LOOSE BM. IS SOB WITH EXERTION. GIVEN CEPOCOL LOZENGE FOR COUGH.
--- NOTE | 2018-12-13 00:38 | NUR ---
PT NOW C/O R SHOULDER AND LOWER BACK PAIN. GIVEN 5MG OXYCODONE GIVEN.
--- NOTE | 2018-12-13 03:29 | NUR ---
STATES HAS SLEPT WELL. WAS UP TO BR TO VOID AND HAVE LOOSE STOOL. CONT TO BE SOB WITH EXERTION. BREATH TONES, CONT TO HAVE CRACKLES 1/2 TO 2/3 UP POST L POS FEW FINE CRACKLES R BASE, HAS FEW SCATTERED EXP WHEEZES. RR 30'S WITH EXERTION. SATS 92-94% ON RA.
--- NOTE | 2018-12-13 03:35 | NUR ---
GIVEN CEPOCOL LOZENGE FOR DRY/SORE THROAT.
--- NOTE | 2018-12-13 05:49 | NUR ---
SLEEPING AT THIS TIME.
--- NOTE | 2018-12-13 06:47 | NUR ---
TO CXR PER W/C AND DEMETRIUS WELL. TO BR WHEN BACK TO ROOM TO VOID. NO CHANGE.
--- NOTE | 2018-12-13 07:51 | NUR ---
PT UP IN RECLINER WITH SON AT HIS SIDE VISITING FROM OUT OF TOWN. PT IS PLEASANT, CALM AND COOPERATIVE WITH NO C/O PAIN AT THIS TIME. VS STABLE. PT DENIES ANY NEEDS AT THIS TIME. BREAKFAST BROUGHT IN FOR THE PT. CALL LIGHT WITHIN REACH. WILL CONTINUE TO MONITOR AND RETURN SOON FOR ASSESSMENT.
--- NOTE | 2018-12-13 08:55 | NUR ---
PT REMAINS UP IN HIS RECLINER WITH SON VISITING. ASSESSMENT COMPLETED. PT PLEASANT, CALM AND COOPERATIVE WITH NO C/O PAIN, N/V OR SOB AT THIS TIME. HE STATES HE STILL FEELS SOB WITH EXERTION/ AMBULATION AROUND ROOM AND TO/FROM THE BATHROOM. CRACKLES HEARD IN LEFT LUNG. ROOM AIR WITH ADEQUATE O2 SATURATIONS. PT STATES HE IS HESITANT TO COUGH/BREATHE DEEPLY IN FEAR HE WILL "HURT HIMSELF AGAIN" (REFERING TO THE OTHER DAY WHEN HE FEEL LIKE HE POPPED A RIB WITH COUGHING). PLAN DISCUSSED TO GIVE PAIN MEDICATION TO STAY AHEAD OF PAIN SO THAT HE CAN START COUGHING/DEEP BREATHING/ USING IS AND ACAPELLE FREQUENTLY. SR ON TELE. L PIV SL BUT ZOSYN INFUSING INTO R PIV. ROUNDED ABDOMEN. PT DENIES ANY NEEDS AT THIS TIME. CALL LIGHT WITHIN REACH. WILL CONTINUE TO MONITOR.
--- NOTE | 2018-12-13 09:00 | NUR ---
DR. WONG AT BEDSIDE
--- NOTE | 2018-12-13 09:34 | NUR ---
MEDICATIONS GIVEN. ZOSYN HAS FINISHED INFUSING AND MAG NOW INITIATED. PT DIDN'T EAT MUCH BREAKFAST- STATED HE "LOST INTEREST" WHILE EATING. PT DENIES PAIN BUT PRN MEDS GIVEN MENTIONED PREVIOUSLY TO ASSIST PT IN COUGH/DEEP BREATHING. DENIES ANY FURTHER NEEDS AT THIS TIME. FRESH WATER PROVIDED. CALL LIGHT WITHIN REACH. WILL CONTINUE TO MONITOR.
--- NOTE | 2018-12-13 10:42 | NUR ---
PT NAPPING WITH HIS EYES CLOSED IN BED. NO SIGNS OF PAIN OR DISCOMFORT- HE APPEARS RESTFUL. CALL LIGHT WITHIN REACH. WILL CONTINUE TO MONITOR.
--- NOTE | 2018-12-13 11:22 | NUR ---
PT CONTINUES TO REST COMFORTABLY IN HIS BED; EYES ARE CLOSED WITH NO SIGNS OF DISCOMFORT OR PAIN. HIS SON IS STILL SITTING AT THE BEDSIDE. SON DENIES ANY NEEDS TO BE MET. CALL LIGHT WITHIN REACH. WILL CONTINUE TO MONITOR.
--- NOTE | 2018-12-13 12:32 | NUR ---
PT SITTING UP VISITING WITH HIS FAMILY FRIENDS AT THE BEDSIDE. REASSESSMENT COMPLETED. NO CHANGES TO ASSESSMENT EXCEPT THAT HE STATES HE IS ABLE TO COUGH HARDER AND BREATHE DEEPER SINCE GETTING PRN PAIN MEDICATION THIS AM. PT STATES THAT HE DOESN'T HAVE AN APPETITE RIGHT NOW AND ONLY ORDERED [employer] FOR LUNCH. HE CONTINUES TO HAVE GOOD FLUID INTAKE PO. GOOD UOP. AMBULATES WELL INDEPENDENTLY IN THE ROOM. DENIES ANY NEEDS AT THIS TIME. CALL LIGHT WITHIN REACH. WILL CONTINUE TO MONITOR.
--- NOTE | 2018-12-13 14:22 | NUR ---
PT VISITING WITH HIS AT THE BEDSIDE. DENIES ANY PAIN OR SOB AT THIS TIME. CALL LIGHT WITHIN REACH. WILL CONTINUE TO MONITOR.
--- NOTE | 2018-12-13 16:04 | NUR ---
PT UP IN RECLINER VISITING WITH FAMILY. HE DENIES ANY NEEDS. SOME PAIN IN HIS LOWER BACK. REASSESSMENT COMPLETED- SEE CHARTED ASSESSMENT. CALL LIGHT WITHIN REACH. WILL CONTINUE TO MONITOR.
--- NOTE | 2018-12-13 17:25 | NUR ---
PT SLEEPING IN HIS BED UPON MY ARRIVAL- PT'S VISITORS REMAIN IN THE ROOM CONVERSING. PT AWOKE AFTER MY ARRIVAL. HE STATES HE IS COMFORTABLE WITH NO REQUESTS AT THIS TIME. CALL LIGHT WITHIN REACH. WILL CONTINUE TO MONITOR.
--- NOTE | 2018-12-13 18:39 | NUR ---
PT ASLEEP COMFORTABLY IN BED WITHOUT ANY SIGNS OF DISCOMFORT. HIS IS AT THE BEDSIDE AND DENIES ANY NEEDS AT THIS TIME. PT'S DINNER TRAY IS AT HIS SIDE AND PER , HE WILL EAT IT SHORTLY WHEN HE AWAKES. CALL LIGHT WITHIN REACH. WILL CONTINUE TO MONITOR.
--- NOTE | 2018-12-13 20:11 | NUR ---
AMBULATED IN [place] DURING REPORT AND DEMETRIUS WELL NOW SITTING UP IN CHAIR VISITING WITH FAMILY. C/O INCREASED PAIN IN CHEST WITH COUGHING. GIVEN 10MG OXYCODONE. STATES IS TIRED OF BEING SICK.
--- NOTE | 2018-12-13 21:28 | NUR ---
RESTING IN BED. STATES PAIN MED HELPED. PT THEN ENCOURAGED TO DEEP BREATH AND COUGH WHICH HE DID. STATES HE IS READY FOR SLEEP.
--- NOTE | 2018-12-14 00:10 | NUR ---
AMB TO BR, DEMETRIUS WELL NO SOB TONIGHT. PT STATES HE WAS LOOKING AT THE BAGS OF IVF AND REALIZED HE WAS REALLY SICK. DID REASURE PT THAT 2 OF THE BAGS JUST WERE NS TO GO WITH THE ABX AND THAT PT WAS IMPROVING. IS HAVING CHEST DISCOMFORT BEFORE THAT INC WITH COUGHING AND DEEP BREATHING. GIVEN 5MG OXYCODONE AND 500MG TYLENOL. STAYING THE NIGHT WITH PT.
--- NOTE | 2018-12-14 02:09 | NUR ---
UP TO BR TO VOID AND HAVE LOOSE GREEN BM AND THEN AMB IN [place] WITH . DEMETRIUS WELL.
--- NOTE | 2018-12-14 03:59 | NUR ---
UP TO BR AND THEN AMB IN [place] OVER TO MED SURG UNIT, NO SOB. WHEN BACK IN ROOM AND SATS CHECKED NOTED TO HAVE SATS OF 89-90%. ENCOURAGED TO COUGH AND DEEP BREATH. COUGH IS GETTING LOOSER SOUNDING. HAS LESS EDEMA IN FEET. ADVISED THAT WHEN NOT WALKING TO KEEP FEET ELEVATED.
--- NOTE | 2018-12-14 06:11 | NUR ---
WHEN PT SLEEPING DID NOTE EPISODIC DESATURATIONS WITH RECOVERY. WAS UP TO BR TO VOID AND HAVE LOOSE STOOL DEMETRIUS BEING UP WELL.
--- NOTE | 2018-12-14 07:47 | NUR ---
PT UP IN RECLINER WITH AT HIS SIDE. VERY PLEASANT, CALM AND COOPERATIVE WITH NO C/O PAIN. PT IN HIGH SPIRITS AT THIS TIME DUE TO HIS DROP IN WBC AND HIS PLAN TO TRANSFER TO M/S. DENIES ANY FURTHER NEEDS AT THIS TIME. CALL LIGHT WITHIN REACH. WILL CONTINUE TO MONITOR.
--- NOTE | 2018-12-14 08:30 | NUR ---
ASSESSMENT COMPLETED- SEE CHARTED ASSESSMENT. PT REMAINS PLEASANT, CALM AND COOPERATIVE WITH NO C/O PAIN, N/V OR SOB. PRN PAIN MEDICATION GIVEN FOR ASSISTANCE IN COUGH/DEEP BREATHING. LLL CRACKLES WITH SOME INSPIRATORY WHEEZING. ROOM AIR. STRONG AND STEADY ON HIS FEET- AMBULATED INDEPENDENTLY IN HALLWAY AND ROOM. EDUCATION COMPLETED AND PT HAS BEEN UPDATED ON HIS PLAN OF CARE WELL HIS PLAN TO TRANSFER TO M/S UNIT TODAY. PT'S AT BEDSIDE. DENIES ANY NEEDS AT THIS TIME. PT IS WORKING ON HIS BREAKFAST WHILE UP IN RECLINER. CALL LIGHT WITHIN REACH. WILL CONTINUE TO MONITOR.
--- NOTE | 2018-12-14 09:05 | NUR ---
REPORT GIVEN TO RECEIVING MAYELA ERICKSON
--- NOTE | 2018-12-14 09:10 | NUR ---
PT AMBULATED WITH RN AT HIS SIDE WELL HIS TO M/S ROOM 108 AT THIS TIME WITH ALL BELONGINGS IN HAND. PT VS AND CONDITION STABLE. TRANSFER COMPLETE.
--- NOTE | 2018-12-14 10:15 | NUR ---
SPOKE WITH LAB, VANCO TROUGH WAS DONE, PENDING RESULTS.
--- NOTE | 2018-12-14 10:30 | NUR ---
[place] [id number], PHARMACY WILL BRING MED TO FLOOR.
--- NOTE | 2018-12-14 10:50 | NUR ---
VANCO INFUSING. PT SITTING UP IN RECLINER VISITING WITH FAMILY. COMFORTABLE ON RA.DENIES ANY NEEDS.
--- NOTE | 2018-12-14 14:32 | NUR ---
PT UP TO BATHROOM FOR LARGE LOOSE STOOL. DENIES NAUSEA BUT STATES HE DOES NOT HAVE MUCH APPETITE. SOB WITH MUCH EXHERTION. REMAINS ON ROOM AIR. TAKING PO FLUIDS WELL. BACK TO BED FOR NAP. FAMILY HAS GONE HOME. CALL LIGHT IN EASY REACH.
--- NOTE | 2018-12-14 18:22 | NUR ---
PT TRANSFERED FROM CCU- WALKED TO ROOM 108, REMAINS ON ROOM AIR, DOES GET SOB WITH EXHERTION, SBA OOB. WBC BEGINNING TO TREND DOWN. GENERALYZED EDEMA FROM FLUIDS, NOW SL-TKO WITH ABX. UP ABOUT THE ROOM ALL DAY, WALKED IN HALLS.
--- NOTE | 2018-12-14 18:55 | NUR ---
CALL PLACED TO DR CONKLIN WITH CONCERNS, PT IS HAVING INCREASED ABD DISTENTION, NOTED EDEMA IN FEET/LEGS IS NOT IMPROVED. RECIEVED ORDER TO GIVE LASIX 20MG IV NOW.
--- NOTE | 2018-12-14 19:00 | NUR ---
CHARGE ROUNDING DONE. PATIENT SITTING UP IN BED, AT BEDSIDE. PATIENT REPORTS FEELING SWOLLEN. DISCUSSED PLANS FOR LASIX AND FLUID BALANCE. NO CONCERNS AT THIS TIME.
--- NOTE | 2018-12-14 19:10 | NUR ---
IN ROOM FOR REPORT, PT IS AWAKE IN BED AND IS IN ROOM. PT DENIES NEEDS AT THIS TIME. CALL LIGHT IS CLOSE.
--- NOTE | 2018-12-14 19:56 | NUR ---
IN ROOM TO ADMINISTER LASIX AND PAIN MEDICATION. PT DENIES FURTHER NEEDS AT THIS TIME. CALL LIGHT IS WITHIN REACH.
--- NOTE | 2018-12-14 21:55 | NUR ---
IN ROOM TO ASSESS PT AND ADMINISTER MEDICATIONS. PT REPORTS OXYCODONE HELPED WITH PAIN. HE STATES HE HAS ALREADY VOIDED ALOT AFTER HAVING THE LASIX. HIS IS IN THE ROOM AND IS VERY HELPFUL. PT DENIES NEEDS AT THIS TIME. CALL LIGHT IS WITHIN REACH.
--- NOTE | 2018-12-14 23:12 | NUR ---
PT IS RESTING WITH EYES CLOSED, RESPRIATIONS ARE EVEN AND TACHY. CALL LIGHT IS WITHIN REACH.
--- NOTE | 2018-12-14 23:29 | NUR ---
PT USED RESTROOM, GAVE PT NEW ICE AND AN ENSURE. HE DENIES FURTHER NEEDS. CALL LIGHT IS WITHIN REACH.
--- NOTE | 2018-12-15 01:14 | NUR ---
CHECKED IN ON PT HE IS SOB AND STATES HE FEELS LIKE IT IS DIFFICULT TO BREATHE. CHECKED OXYGEN SATURATION AND HE IS BETWEEN 93-95%. PT STATES HE TRIED DEEP BREATHING, RELAXATION TECHNIQUES AND IT IS NOT IMPROVING. LUNGS SOUND COARSE WITH SOME EXP WHEEZES. CALLED RT FOR ASSESSMENT AND POSSIBLE BREATHING TRT. PT STATES IT MAY BE ANXIETY. WILL CHECK BACK ON PT.
--- NOTE | 2018-12-15 01:31 | NUR ---
PT REPORTS BREATHING MUCH BETTER AFTER DUONEB TRT. HE DENIES FURTHER NEEDS AT THIS TIME. CALL LIGHT IS WITHIN REACH.
--- NOTE | 2018-12-15 03:00 | NUR ---
IN ROOM TO ADMINISTER IV ABX. BROUGHT PT A CUP OF ICE. HE DENIES PAIN AT THIS TIME AND FURTHER NEEDS. CALL LIGHT IS WITHIN REACH.
--- NOTE | 2018-12-15 05:15 | NUR ---
PT IS RESTING WITH EYES CLOSED, RR IS EVEN AND NONLABORED. CALL LIGHT IS CLOSE.
--- NOTE | 2018-12-15 05:58 | NUR ---
IN ROOM TO ADMINISTER IV ABX, PT DENIES PAIN AND SAYS SOB HAS IMPROVED. HE DENIES FURTHER NEEDS AT THIS TIME. CALL LIGHT IS WITHIN REACH.
--- NOTE | 2018-12-15 08:39 | NUR ---
UP TO CHAIR FOR BREAKFAST, AGAIN NOT MUCH APPETITE, DOES NOT LIKE ESURE SUPPLEMENTS, OFFERED ENSURE CLEAR FRUIT DRINK AND HE SAID HE CAN DRINK IT. WANTS TO SHOWER TODAY. IN ROOM VERY SUPPORTIVE.
--- NOTE | 2018-12-15 09:11 | NUR ---
PATIENT SITTING UP IN CHAIR. IN ROOM. VITAL SIGNS AND I&O DONE. SETS UP BATHROOM FOR SHOWER. LINENS CHANGED. CALL LIGHT WITHIN REACH. NO OTHER NEEDS AT THIS TIME
--- NOTE | 2018-12-15 10:26 | NUR ---
PATIENT'S IV COVERED. IN ROOM. PATIENT GOES TO TAKE A SHOWER
--- NOTE | 2018-12-15 11:21 | NUR ---
TOLERATED SHOWER WELL, VANCO TROUGH DRAWN.
--- NOTE | 2018-12-15 13:03 | NUR ---
VANCO TROUGH-16.9, CALL PLACED TO PHARMACY, WILL MIX VANCO NOW FOR INFUSION, TIMES WILL NOT NEED TO BE CHANGED.
--- NOTE | 2018-12-15 13:36 | NUR ---
PATIENT RESTING IN BED. IN ROOM. VITAL SIGNS AND I&O DONE. CALL LIGHT WITHIN REACH. NO OTHER NEEDS AT THIS TIME
--- NOTE | 2018-12-15 13:53 | NUR ---
PT SITTING UP IN BED, O2 NC IN USE. PT STATED HE IS FEELING MUCH BETTER. HOPES TO BE DC'D SOON. JUST RETIRED OCT 21, WANTS TO FIND OUT WHAT HIS LIFE BEING RETIRED IS LIKE. PT REQUESTED PRAYER, WILL FOLLOW NEEDED
--- NOTE | 2018-12-15 17:17 | NUR ---
PATIENT IN BED. AND RN IN ROOM. VITAL SIGNS AND I&O DONE. CALL LIGHT WITHIN REACH. NO OTHER NEEDS AT THIS TIME
--- NOTE | 2018-12-15 17:49 | NUR ---
PT HAS BEEN TIRED TODAY, SHOWERED AND HAS BEEN INDEP IN ROOM, LOOSE PROD COUGH, EXP WHEEZES BILATERAL, WBC DOWN AGAIN TO 16.1. RT HAS WORKED WITH PT TO HELP HIM CLEAR SPUTUM BREAKING UP. REMAINS ON RA. CONT. TO HAVE LOOSE STOOLS. DECLINED OXYCODONE TODAY. DR FRANCISCO HAS ORDERED MUCINEX AND ROBITUSSIN TO HELP WITH COUGH. IN ROOM AND SUPPORTIVE.
--- NOTE | 2018-12-15 19:05 | NUR ---
RECEIVED REPORT ON PT, HE IS WALKING IN THE HALLS WITH HIS AT THIS TIME.
--- NOTE | 2018-12-15 19:15 | NUR ---
PT WOKE FROM [facility] AND IS WALKING IN HALLS WITH AT THIS TIME.
--- NOTE | 2018-12-15 21:05 | NUR ---
IN BED WATCHING TV, C/O ABD PAIN. MEDICTAED WITH MORPHINE IV 5MG 03/29 PAIN. ROBUTOSSIN DM 5CC GIVEN PER REQUESTS OF COUGH WITH CLEAR THIN ORAL DISCHARGE. VANCOMYCIN IV INFUSING, SITE INTACT. NO OTHER REQUESTS, FRESH WATER AND CALL LIGHT AT BEDSIDE, IN ROOM.
--- NOTE | 2018-12-15 21:05 | NUR ---
VITALS AND I&OS DONE AND CHARTED. ICE PACK GIVEN PER PT REQUEST. BEDSIDE TABLE AND CALL LIGHT IN REACH.
--- NOTE | 2018-12-15 22:00 | NUR ---
PT JUST USED THE RESTROOM AND WAS BACK IN BED BUT SOB AND WHEEZES WERE AUSCULTATED. CALLED RT FOR A NEB TREATMENT. PT DENIES PAIN AT THIS TIME. IV ABX ARE INFUSING. PT HAS FRESH ICEWATER AT BEDSIDE AND DENIES NEEDS. IS IN THE ROOM.
--- NOTE | 2018-12-16 00:05 | NUR ---
PT IS RESTING WITH EYES CLOSED, RESPIRATIONS ARE EVEN AND NONLABORED. CALL LIGHT IS WITHIN REACH.
--- NOTE | 2018-12-16 01:47 | NUR ---
PT IS RESTING WITH EYES CLOSED, RESPIRATIONS ARE EVEN AND NONLABORED. CALL LIGHT IS WITHIN REACH.
--- NOTE | 2018-12-16 04:13 | NUR ---
ADMINISTERED NEXT IV ABX ALONG WITH PRN PAIN MEDICATIONS FOR ABD/BACK PAIN. FRESH WATER AND ICE PROVIDED. PT DENIES NAUSEA AND TROUBLE BREATHING. CALL LIGHT IS CLOSE.
--- NOTE | 2018-12-16 05:56 | NUR ---
ADMINISTERED IV ABX, PT IS AWAKE IN BED AND IS IN THE ROOM. HE DENIES SOB AND PAIN AT THIS TIME. CALL LIGHT IS WITHIN REACH.
--- NOTE | 2018-12-16 07:15 | NUR ---
PATIENT RESTING IN BED. IN ROOM. SETS UP BATHROOM FOR SHOWER. CALL LIGHT WITHIN REACH. NO OTHER NEEDS AT THIS TIME
--- NOTE | 2018-12-16 07:36 | NUR ---
RECIEVED BEDSIDE REPORT FROM MAYELA FULLER. PT AWAKE AND ALERT IN BED. PT HAD BEEN UP WALKING IN THE [place]. PT STATES HE FEELS BETTER. ON ROOM AIR. IV S/L.
--- NOTE | 2018-12-16 08:25 | NUR ---
PT AWAKE AND ALERT IN BED. PT STATED HE ATE BREAKFAST FOR THE FIRST TIME IN SEVERAL DAYS. PT IS UP WALKING IN THE HALLS WITH HIS .
--- NOTE | 2018-12-16 09:56 | NUR ---
PATIENT SITTING UP IN BED. AND FRIEN IN ROOM. VITAL SIGNS AND I&O DONE. CALL LIGHT WITHIN REACH. NO OTHE NEEDS AT THIS TIME
--- NOTE | 2018-12-16 13:19 | NUR ---
PATIENT RESTING IN BED. IN ROOM. VITAL SIGNS AND I&O DONE. PATIENT DID NOT EAT YET HIS LUNCH. CALL LIGHT WITHIN REACH. NO OTHER NEEDS AT THIS TIME
--- NOTE | 2018-12-16 13:59 | NUR ---
PT RESTING COMFORTABLY IN BED, AT BEDSIDE. NO NEEDS AT THIS TIME.
--- NOTE | 2018-12-16 14:50 | NUR ---
PATIENT CALLS AND ASKS FOR HIS RN. RN NOTIFIED.
--- NOTE | 2018-12-16 18:06 | NUR ---
PATIENT SITTING UP IN BED. IN ROOM. VITAL SIGNS AND I&O DONE. IV COVERED FOR SHOWER. CALL LIGHT WITHIN REACH. NO OTHER NEEDS AT THIS TIME
--- NOTE | 2018-12-16 18:37 | NUR ---
PT STATES HE FEELS MUCH BETTER. UP AMBULATING IN HALLS MULTIPLE TIMES WITH HIS . ON ROOM AIR. S/L EXCEPT FOR IV ABX. CHRONIC REDDNESS/SCABBING IN LEGS. A&O X4. REQUESTED OXY 10MG X1 FOR PAIN, EFFECTIVE. INDEPENDENT WITH IS.
--- NOTE | 2018-12-16 18:47 | NUR ---
PATIENT SITTING UP IN BED. IN ROOM. PATIENT GOES TO BATHROOM TO TAKE A SHOWER, HIS ASSISTING HIM. THIS PLUSH DRESSER CHANGED LINENS. NO OTHER NEEDS AT THIS TIME
--- NOTE | 2018-12-16 20:30 | NUR ---
TOOL AND DIE MAKER/DESIGNER ROUNDING NOTE. PT RESTING IN BED. PRIMARY RN AT BEDSIDE. PT REQUESTS JUICE. PROVIDED. PT DENIES FURTHER NEEDS AT THIS TIME. AT BEDSIDE. CALL LIGHT IN REACH.
--- NOTE | 2018-12-16 20:35 | NUR ---
EVENING MEDS GIVEN AND ASSESSMENT DONE. PATIENT AND NOW TAKING A WALK.
--- NOTE | 2018-12-16 22:30 | NUR ---
PATIENT AND HIS ARE TAKING A WALK. PAIN IS DOWN T 410. PATIENT JUST VOIDED AND HAD A SMALL BM.
--- NOTE | 2018-12-17 00:05 | NUR ---
PATIENT CALLED AND SAID HIS RIB PAIN HAD INCREASED AFTER HIS WALK AND WAS NOW 8/10. 15 MG OF PO OXYCODONE GIVEN.
--- NOTE | 2018-12-17 01:10 | NUR ---
PATIENT RESTING QUIETLY ON HIS RIGHT SIDE. EYES CLOSED. RESPIRATIONS REGULAR AND EVEN AT A RATE OF 16. CALL LIGHT IN REACH AND SPOUSE ASLEEP ON THE COUCH.
--- NOTE | 2018-12-17 04:01 | NUR ---
PATIENT'S RFA IV WAS LEAKING SO IT WAS PULLED INTACT AND NEW 22G IV INSERTED IN THE LEFT HAND AND FLUSHES WELL WITHIN NORMAL LIMITS. PATIENT THEN GOT A BREATHING TREATMENT AND TOOK A WALK WITH HIS .
--- NOTE | 2018-12-17 05:33 | NUR ---
PATIENT HAS TAKEN MULTIPLE WALK DURING THE NIGHT AND HAS HAD TO HAVE OXYCODONE TWICE FOR PAIN. ONCE FOR 03/29 AND ONCE FOR 04/29 10MG FOLLOWED BY 15MG. PATIENT IS INDEPENDENT AND HIS IS SLEEPING ON THE COUCH. PATIENT RESTING QUIETLY IN BED AT THIS TIME EYES CLOSED WITH EVEN AND REGULAR RESPIRATIONS. RFA IV HAD TO BE REPLACED DUE TO LEAKING. NEW 22G IV IN THE LEFT HAND WHICH FLUSHES WELL AND IS SALINE LOCKED.
--- NOTE | 2018-12-17 07:27 | NUR ---
REPORT RECEIVED FROM MILK RECEIVER TANK TRUCK RN. PT AWAKE IN ROOM WITH AT BEDSIDE. REPORTS BREATHING IS IMPROVED. PAIN TO LEFT LOWER RIBS OF 6/10 REPORTED. PRN PAIN MEDICAITION TO BE ADMINSTERED. JUICE PROVIDED. CALL LIGHT IN REACH.
[2018-12-17] MEDS ORDERED: CLINDAMYCIN HC300 MG PO (08:50)
[2018-12-17] MEDS ORDERED: LORCET 5-325 M1 EACH PO (09:28)
== END 2018-12-17 10:35 | disposition home or self-care (01) | DRG 871 ==
LOC: ED 11:32 → CCU 16:03 → MS 12-14 09:10
PROVIDERS: ADMIT Internal Medicine
DX: A41.2 Sepsis due to unspecified staphylococcus (principal); A40.3 Sepsis due to Streptococcus pneumoniae; J15.20 Pneumonia due to staphylococcus, unspecified; J13 Pneumonia due to Streptococcus pneumoniae; N17.9 Acute kidney failure, unspecified; R65.20 Severe sepsis without septic shock; I10 Essential (primary) hypertension; N40.0 Benign prostatic hyperplasia without lower urinary tract symptoms; G25.81 Restless legs syndrome; J30.89 Other allergic rhinitis; Z88.1 Allergy status to other antibiotic agents; Z79.891 Long term (current) use of opiate analgesic; Z79.51 Long term (current) use of inhaled steroids; Z79.899 Other long term (current) drug therapy
CPT/HCPCS: 36415; 51702; 71045; 71046; 80048; 80053; 80202; 81001; 82570; 83605; 83735; 83880; 84300; 85007; 85025; 85032; 86635; 87040; 87045; 87046; 87070; 87088; 87205; 87327; 87449; 87493; 87502; 87899; 93005; 93010; 94640; 94667; 94668; 94760; 99291; J0295; J1650; J1885; J1940; J1956; J2270; J2543; J3370; J3475; J7030; J7060; J7120